=== PATIENT | male | born 1975 | race Hispanic/Latino ===

== ENCOUNTER 2017-08-09 10:10 | Outpatient (CLI) | payer OTHER ==
--- NOTE | 2017-08-09 12:39 | MRI ---
MRI BRAIN WITH AND WITHOUT CONTRAST: Technique: Multiplanar, multisequence MRI images were obtained of the brain. Post contrast images wer e obtained with administration of 17 cc of MultiHance IV. 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 History of craniotomy and tumor resection f rom 2009. Comparison: MRI brain and 07-08-09 from this institution. Also compared to an MRI brain from [facility], 12-12-13. FINDINGS: Ventricles have normal size and position. Craniotomy defect with associated parenchymal surgical cavi ty in the right temporal lobe again noted. There is mild surrounding gliosis which appears stable fro m 2013. No evidence of restricted diffusion. There is no enhancement seen in the operative bed. No ot her enhancement seen in the brain. Paranasal sinuses and mastoids appear clear. Mild mucosal thickening in the left sphenoid sinus. IMPRESSION: Post-operative changes in the right temporal lobe again noted. MRI findings are stable when compared to the prior exam of 2013. No evidence of recurrent neoplasm. POS: [facility]
== END 2017-08-09 10:11 | disposition home or self-care (01) ==
LOC: BICMRI 10:10 → MRI 10:11
PROVIDERS: ATTEND Neurological Surgery
DX: C71.2 Malignant neoplasm of temporal lobe (principal); Z98.890 Other specified postprocedural states
CPT/HCPCS: 70553